=== PATIENT | female | born 1970 | race Two or more races ===

== ENCOUNTER 2017-03-07 11:04 | Emergency (ER) | payer MEDICAID ==
[~2017-03-07] VITALS: Ht 165.1 cm; Wt 52.6 kg
[~2017-03-07 11:04] MED LIST: NKM; TRAMADOL HCL50 MG ORAL; VICODIN 5-5001 EACH PO; ZOFRAN ODT4 MG ORAL
[2017-03-07 11:24] VITALS: BP 139/78
[2017-03-07] MEDS ORDERED: Ketorolac 30mg Inj IV ONE (11:45)
[2017-03-07] MEDS ORDERED: fentaNYL 100 mcg/2 mL IV ONE (11:45)
[2017-03-07 12:23] LABS: APPEARANCE,URINE CLEAR; KETONES,URINE NEGATIVE (NEGATIVE); LEUKOCYTE ESTERASE ,URINE NEGATIVE (NEGATIVE); NITRITE,URINE NEGATIVE (NEGATIVE); PH,URINE 6 (4.5-8.0); PROTEIN,URINE NEGATIVE (NEGATIVE); UROBILINOGEN,URINE NORMAL MG/DL (0.0-1.0)
--- NOTE | 2017-03-07 13:56 | Emergency Room Report ---
History of Present Illness General Chief Complaint: Pain Source: Patient Present Illness HPI Patient reports 3 days of increased R back pain radiating down her R leg. H/O disk disease and sciatica. No specific event caused this worsening. No fevers , saddle numbness, incontinence. Had MRI several years ago. Pain prevents from ambulating.07/18. Ibuprofen taken. Not help. May have started from cough. No bleeding problems, not , no recent trauma. Has had vertigo and vomiting yesterday. This is improved today. No headache. No tinnitus. Allergies: Coded Allergies: No Known Allergies (Verified , 08/11/14) Patient History Past Medical History: see triage record Social History: Denies: smoking Social History Narrative Last Menstrual Period: 02/19/17 Now: No Reviewed Nursing Documentation: PMH: Agreed, PSxH: Agreed Nursing Documentation-PMH Past Medical History: No Stated History Hx Gastrointestinal Problems: Yes - GALLSTONES REMOVED 2011 Review of Systems All Other Systems: negative except mentioned in HPI Physical Exam Vital Signs Date Time Temp Pulse Resp B/P Pulse Ox O2 Delivery O2 Flow Rate FiO2 03/07/17 11:10 98.1 81 17 139/78 100 Room Air Sp02 EP Interpretation: reviewed, normal General Appearance: well appearing, no apparent distress, GCS 15 Head: normocephalic Eyes: bilateral eye PERRL, bilateral eye normal inspection ENT: moist mucus membranes Neck: supple Respiratory: lungs clear, normal breath sounds Cardiovascular #1: regular rate, rhythm Cardiovascular #2: 2+ radial (R) Gastrointestinal: normal inspection, normal bowel sounds, non tender, no mass, non-distended Musculoskeletal: gait/station normal, normal range of motion, other - lumbar tenderness, SLR with lumbar pain more than neurologic pain Neurologic: alert, oriented x3, [employer] III-XII nml as tested, motor strength/tone normal, DTRs symmetric, sensory intact, cerebellar normal, speech normal Psychiatric: mood/affect normal Skin: normal inspection, warm/dry Medical Decision Making Diagnostic Impression: Primary Impression: Sciatica of right side Additional Impression: Vertigo ER Course Patient presents with increased sciatic pain and vertigo. Ddx; exacerbation of chronic pain, stress fx, UTI, labyrinthitis amongst others. Pain is severe, pt not ambulatory and xrays will be obtained. Will check urine. IV analgesia ordered. xrays with DJD, no fx. UA normal. Improved. No vertigo now. Ambulatory. Patient stable for outpatient observation and treatment. Laboratory Tests Test 03/07/17 12:00 Urine Color Pale yellow Urine Appearance Clear Urine pH 6 (4.5-8.0) Urine Specific [place] 1.020 (1.005-1.035) Urine Protein Negative (NEGATIVE) Urine Glucose (UA) Negative (NEGATIVE) Urine Ketones Negative (NEGATIVE) Urine Occult Blood Negative (NEGATIVE) Urine Nitrite Negative (NEGATIVE) Urine Bilirubin Negative (NEGATIVE) Urine Urobilinogen Normal MG/DL (0.0-1.0) Urine Leukocyte Esterase Negative (NEGATIVE) Urine HCG, Qualitative Negative Other X-Ray Diagnostic Results Other X-Ray Diagnostic Results : X-Ray Ordered: Lumbar spine EP Interpretation: Yes Findings: no fractures, no dislocation, no soft tissue swelling, other - Degenerative arthritis Number of Views: 3 Last Vital Signs Date Time Temp Pulse Resp B/P Pulse Ox O2 Delivery O2 Flow Rate FiO2 03/07/17 14:10 98.1 78 16 135/70 98 Room Air Status: improved Disposition: HOME, SELF-CARE Condition: Improved Scripts Methocarbamol* (ROBAXIN*) 500 Mg Tablet 500 MG PO TID, #12 TAB 0 Refills Prov: Lukas Casarez M.D. 03/07/17 Ibuprofen* (MOTRIN*) 600 Mg Tablet 600 MG ORAL Q6H Y for For Pain, #20 TAB Prov: Lukas Casarez M.D. 03/07/17 Tramadol Hcl* (ULTRAM*) 50 Mg Tablet 50 MG ORAL Q6H Y for For Pain, #14 TAB 0 Refills Prov: Lukas Casarez M.D. 03/07/17 Referrals: NOT [facility]/,REFERRING (PCP) Lukas Casarez M.D. March 07, 2017 13:56
[2017-03-07 14:00] VITALS: BP 135/70
[2017-03-07] MEDS ORDERED: TRAMADOL HCL50 MG ORAL (14:04)
[2017-03-07] MEDS ORDERED: IBUPROFEN600 MG ORAL (14:04)
[2017-03-07] MEDS ORDERED: ROBAXIN500 MG PO (14:04)
[2017-03-07 14:10] VITALS: BP 135/70
--- NOTE | 2017-03-08 07:52 | Diagnostic Imaging Report ---
Indication: PAIN Technique: 3 views of the lumbar spine Comparison: None Findings:Vertebral body heights are preserved. Disc spaces are preserved. Bony alignment is normal. Pedicles are intact. Sacral arches are preserved. Sacroiliac joint spaces are preserved there are mild degenerative proliferative changes Impression:Mild degenerative changes. No acute bony trauma
== END 2017-03-07 14:10 | disposition home or self-care (01) ==
LOC: EMR 11:24
DX: M54.31 Sciatica, right side (principal); R42 Dizziness and giddiness
CPT/HCPCS: 72020; 81003; 81025; 96374; 96375; 99284; J1885; J2405; J3010